=== PATIENT | male | born 1970 | race Caucasian/White ===

== ENCOUNTER → 2023-11-22 11:18 | Outpatient (REF) | payer BC, SELFPAY ==
[2023-11-22 12:23] LABS: INR 2.37; PT 25.8 Sec (11.4-14.6)
== END ==
LOC: REG 11:18
PROVIDERS: ATTENDING PHYSICIAN Internal Medicine; FAMILY PHYSICIAN Internal Medicine
DX: Z95.2 Presence of prosthetic heart valve (principal)
CPT/HCPCS: 36415; 85610

== ENCOUNTER → 2023-12-08 12:08 | Outpatient (REF) | payer BC, SELFPAY ==
[2023-12-08 15:45] LABS: PT 25.1 Sec (11.4-14.6)
== END ==
LOC: HWLAB 12:08
PROVIDERS: ATTENDING PHYSICIAN Internal Medicine; FAMILY PHYSICIAN Internal Medicine
DX: Z95.3 Presence of xenogenic heart valve (principal)
CPT/HCPCS: 36415; 85610

== ENCOUNTER → 2023-12-19 10:44 | Outpatient (REF) | payer BC, SELFPAY ==
[2023-12-19 12:47] LABS: INR 3.14; PT 32.2 Sec (11.4-14.6)
== END ==
LOC: HWLAB 10:44
PROVIDERS: ATTENDING PHYSICIAN Internal Medicine; FAMILY PHYSICIAN Internal Medicine
DX: Z95.3 Presence of xenogenic heart valve (principal)
CPT/HCPCS: 36415; 85610

== ENCOUNTER → 2024-01-01 07:01 | Outpatient (REF) | payer BC, SELFPAY ==
[2024-01-01 09:29] LABS: INR 2.98; PT 31.4 Sec (11.4-14.6)
== END ==
LOC: DHCBC HW 07:01
PROVIDERS: ATTENDING PHYSICIAN Internal Medicine; FAMILY PHYSICIAN Internal Medicine
DX: Z95.2 Presence of prosthetic heart valve (principal); Z95.3 Presence of xenogenic heart valve
CPT/HCPCS: 36415; 85610; 93306

== ENCOUNTER → 2024-01-23 08:05 | Outpatient (REF) | payer BC, SELFPAY ==
[2024-01-23 10:12] LABS: INR 4.16; PT 40.3 Sec (11.4-14.6)
== END ==
LOC: HWLAB 08:05
PROVIDERS: ATTENDING PHYSICIAN Internal Medicine; FAMILY PHYSICIAN Internal Medicine
DX: Z95.3 Presence of xenogenic heart valve (principal)
CPT/HCPCS: 36415; 85610

== ENCOUNTER → 2024-01-31 09:58 | Outpatient (REF) | payer BC, SELFPAY ==
[2024-01-31 11:03] LABS: INR 2.72; PT 28.8 Sec (11.4-14.6)
== END ==
LOC: REG 09:58
PROVIDERS: ATTENDING PHYSICIAN Internal Medicine; FAMILY PHYSICIAN Internal Medicine
DX: Z95.3 Presence of xenogenic heart valve (principal)
CPT/HCPCS: 36415; 85610

== ENCOUNTER → 2024-02-28 10:24 | Outpatient (REF) | payer BC, SELFPAY ==
[2024-02-28 11:15] LABS: INR 2.95; PT 30.6 Sec (11.4-14.6)
== END ==
LOC: REG 10:24
PROVIDERS: ATTENDING PHYSICIAN Internal Medicine
DX: Z95.3 Presence of xenogenic heart valve (principal)
CPT/HCPCS: 36415; 85610

== ENCOUNTER → 2024-03-20 11:24 | Outpatient (REF) | payer BC, SELFPAY ==
[2024-03-20 12:28] LABS: INR 2.32; PT 25.3 Sec (11.4-14.6)
== END ==
LOC: REG 11:24
PROVIDERS: ATTENDING PHYSICIAN Internal Medicine; FAMILY PHYSICIAN Internal Medicine
DX: Z95.3 Presence of xenogenic heart valve (principal)
CPT/HCPCS: 36415; 85610

== ENCOUNTER → 2024-03-26 12:51 | Outpatient (REF) | payer BC, SELFPAY ==
[2024-03-26 14:58] LABS: INR 2.72; PT 28.7 Sec (11.4-14.6)
== END ==
LOC: HWLAB 12:51
PROVIDERS: ATTENDING PHYSICIAN Internal Medicine; FAMILY PHYSICIAN Internal Medicine
DX: Z95.3 Presence of xenogenic heart valve (principal)
CPT/HCPCS: 36415; 85610

== ENCOUNTER → 2024-05-29 08:02 | Outpatient (REF) | payer BC, SELFPAY ==
[2024-05-29 09:49] LABS: % Basophils 0.7 % (0-2); % Eosinophils 1.2 % (0-6); % Immature Granulocytes 0.1 % (0-0.5); % Monocytes 7.3 % (1.7-9.3); % Neutrophils 67.7 % (42.2-75.2); Absolute Basophils 0.1 10^3/uL (0-0.2); Absolute Eosinophils 0.1 10^3/uL (0-0.7); Absolute Lymphocytes 1.6 10^3/uL (1.2-3.4); Absolute Monocytes 0.5 10^3/uL (0.1-0.6); Absolute Neutrophils 4.7 10^3/uL (1.4-6.5); Hemoglobin 13.7 g/dL (13.0-18.0); Mean Corp Hgb Conc. 33.4 g/dL (33.0-37.0); Mean Corpuscular Volume 83.8 fL (80.0-94.0); Mean Platelet Volume 11.5 fL (7.4-10.4); Nucleated Red Blood Cells % 0 % (-); Platelet Count 178 10^3/uL (130-400); Red Blood Cell Count 4.89 10^6/uL (4.70-6.10); Red Cell Dist. Width 13.3 % (11.5-14.5); White Blood Cell Count 6.9 10^3/uL (4.8-10.8)
[2024-05-29 09:52] LABS: INR 3.29; PT 33.4 Sec (11.4-14.6)
[2024-05-29 10:35] LABS: Glycohemoglobin (HgbA1c) 5.3 % (4.0-5.6)
[2024-05-29 10:50] LABS: TSH 3.58 uIU/ml (0.47-4.68)
[2024-05-29 11:26] LABS: ALT (SGPT) 18 U/L (0-50); AST (SGOT) 29 U/L (17-59); Albumin 4.4 g/dl (3.5-5.0); Alkaline Phosphatase 112 U/L (38-126); Blood Urea Nitrogen 15 mg/dl (9-20); Calcium 9.3 mg/dl (8.4-10.2); Carbon Dioxide 23 mmol/L (22-30); Chloride 104 mmol/L (98-107); Glucose 89 mg/dl (70-99); HDL Cholesterol 32 mg/dl; LDL Cholesterol, Calculated 91 mg/dl; Potassium 4.3 mmol/L (3.5-5.1); Sodium 141 mmol/L (135-145); Total Cholesterol 145 mg/dl (50-199); Total Protein 6.6 g/dl (6.3-8.2); Triglyceride 110 mg/dl (10-149); Very Low Density Lipoprotein 22 mg/dl (0-30); eGFR > 60.00
== END ==
LOC: REG 08:02
PROVIDERS: ATTENDING PHYSICIAN Internal Medicine; FAMILY PHYSICIAN Internal Medicine
DX: Z95.3 Presence of xenogenic heart valve (principal); Z95.2 Presence of prosthetic heart valve; I10 Essential (primary) hypertension; E78.2 Mixed hyperlipidemia
CPT/HCPCS: 36415; 80053; 80061; 83036; 84443; 85025; 85610

== ENCOUNTER → 2024-06-26 11:12 | Outpatient (REF) | payer BC, SELFPAY ==
[2024-06-26 12:32] LABS: INR 3.15; PT 32.3 Sec (11.4-14.6)
== END ==
LOC: REG 11:12
PROVIDERS: ATTENDING PHYSICIAN Internal Medicine; FAMILY PHYSICIAN Internal Medicine
DX: Z95.3 Presence of xenogenic heart valve (principal)
CPT/HCPCS: 36415; 85610

== ENCOUNTER → 2024-07-24 09:51 | Outpatient (REF) | payer BC, SELFPAY ==
[2024-07-24 10:37] LABS: INR 2.82; PT 29.6 Sec (11.4-14.6)
== END ==
LOC: REG 09:51
PROVIDERS: ATTENDING PHYSICIAN Internal Medicine
DX: Z95.3 Presence of xenogenic heart valve (principal)
CPT/HCPCS: 36415; 85610

== ENCOUNTER → 2024-09-03 11:41 | Outpatient (REF) | payer BC, SELFPAY ==
[2024-09-03 16:26] LABS: PT 22.8 Sec (11.4-14.6)
== END ==
LOC: HWLAB 11:41
PROVIDERS: ATTENDING PHYSICIAN Internal Medicine; FAMILY PHYSICIAN Internal Medicine
DX: Z95.3 Presence of xenogenic heart valve (principal)
CPT/HCPCS: 36415; 85610

== ENCOUNTER → 2024-09-13 12:20 | Outpatient (REF) | payer BC, SELFPAY ==
[2024-09-13 16:27] LABS: INR 2.35; PT 25.8 Sec (11.4-14.6)
== END ==
LOC: HWLAB 12:20
PROVIDERS: ATTENDING PHYSICIAN Internal Medicine; FAMILY PHYSICIAN Internal Medicine
DX: Z95.3 Presence of xenogenic heart valve (principal)
CPT/HCPCS: 36415; 85610

== ENCOUNTER → 2024-10-16 11:13 | Outpatient (REF) | payer BC, SELFPAY ==
[2024-10-16 12:06] LABS: INR 2.67; PT 28.4 Sec (11.4-14.6)
== END ==
LOC: REG 11:13
PROVIDERS: ATTENDING PHYSICIAN Internal Medicine; FAMILY PHYSICIAN Internal Medicine
DX: Z95.3 Presence of xenogenic heart valve (principal)
CPT/HCPCS: 36415; 85610

== ENCOUNTER → 2024-11-27 10:45 | Outpatient (REF) | payer BC, SELFPAY ==
[2024-11-27 12:38] LABS: INR 3.43; PT 34.4 Sec (11.4-14.6)
== END ==
LOC: REG 10:45
PROVIDERS: ATTENDING PHYSICIAN Internal Medicine
DX: Z95.3 Presence of xenogenic heart valve (principal)
CPT/HCPCS: 36415; 85610

== ENCOUNTER → 2024-12-18 11:02 | Outpatient (REF) | payer BC, SELFPAY ==
[2024-12-18 12:28] LABS: INR 2.49; PT 26.9 Sec (11.4-14.6)
== END ==
LOC: REG 11:02
PROVIDERS: ATTENDING PHYSICIAN Internal Medicine
DX: Z95.3 Presence of xenogenic heart valve (principal)
CPT/HCPCS: 36415; 85610

== ENCOUNTER → 2025-01-07 12:42 | Outpatient (REF) | payer BC, SELFPAY ==
[2025-01-07 15:31] LABS: INR 3.35; PT 33.7 Sec (11.4-14.6)
== END ==
LOC: HWLAB 12:42
PROVIDERS: ATTENDING PHYSICIAN Internal Medicine
DX: Z95.3 Presence of xenogenic heart valve (principal)
CPT/HCPCS: 36415; 85610

== ENCOUNTER → 2025-02-05 10:23 | Outpatient (REF) | payer BC, SELFPAY ==
[2025-02-05 11:24] LABS: INR 3.11; PT 31.9 Sec (11.4-14.6)
== END ==
LOC: REG 10:23
PROVIDERS: ATTENDING PHYSICIAN Internal Medicine
DX: Z95.3 Presence of xenogenic heart valve (principal)
CPT/HCPCS: 36415; 85610

== ENCOUNTER → 2025-02-16 10:32 | Outpatient (REF) | payer BC, SELFPAY ==
[2025-02-16 17:18] LABS: INR 2.58; PT 28.1 Sec (11.4-14.6)
== END ==
LOC: HWLAB 10:32
PROVIDERS: ATTENDING PHYSICIAN Internal Medicine
DX: Z95.3 Presence of xenogenic heart valve (principal)
CPT/HCPCS: 36415; 85610

== ENCOUNTER → 2025-04-16 09:37 | Outpatient (REF) | payer BC, SELFPAY ==
[2025-04-16 11:28] LABS: INR 2.95; PT 31.1 Sec (11.4-14.6)
== END ==
LOC: REG 09:37
PROVIDERS: ATTENDING PHYSICIAN Internal Medicine
DX: Z95.3 Presence of xenogenic heart valve (principal)
CPT/HCPCS: 36415; 85610

== ENCOUNTER → 2025-05-28 11:10 | Outpatient (REF) | payer BC, SELFPAY ==
[2025-05-28 12:06] LABS: INR 2.49; PT 26.9 Sec (11.4-14.6)
== END ==
LOC: REG 11:10
PROVIDERS: ATTENDING PHYSICIAN Internal Medicine; FAMILY PHYSICIAN Internal Medicine
DX: Z95.3 Presence of xenogenic heart valve (principal)
CPT/HCPCS: 36415; 85610

== ENCOUNTER → 2025-07-09 10:01 | Outpatient (REF) | payer BC, SELFPAY ==
[2025-07-09 10:55] LABS: INR 2.41; PT 26.3 Sec (11.4-14.6)
== END ==
LOC: REG 10:01
PROVIDERS: ATTENDING PHYSICIAN Internal Medicine
DX: Z95.3 Presence of xenogenic heart valve (principal)
CPT/HCPCS: 36415; 85610

== ENCOUNTER → 2025-08-13 10:33 | Outpatient (REF) | payer BC, SELFPAY ==
[2025-08-13 12:20] LABS: Hematocrit 40.2 % (39.0-52.0); Hemoglobin 13.5 g/dL (13.0-18.0); Mean Corp Hgb Conc. 33.6 g/dL (33.0-37.0); Mean Corpuscular Volume 83.6 fL (80.0-94.0); Nucleated Red Blood Cells % 0 % (-); Platelet Count 173 10^3/uL (130-400); Red Cell Dist. Width 13.4 % (11.5-14.5)
[2025-08-13 12:32] LABS: INR 2.85; PT 29.9 Sec (11.4-14.6)
[2025-08-13 12:39] LABS: Glycohemoglobin (HgbA1c) 5.4 % (4.0-5.9)
[2025-08-13 13:06] LABS: ALT (SGPT) 21 U/L (0-50); AST (SGOT) 24 U/L (17-59); Albumin 4.3 g/dl (3.5-5.0); Alkaline Phosphatase 102 U/L (38-126); Blood Urea Nitrogen 15 mg/dl (9-20); Calcium 9.2 mg/dl (8.4-10.2); Carbon Dioxide 27 mmol/L (22-30); Chloride 104 mmol/L (98-107); Glucose 76 mg/dl (70-99); HDL Cholesterol 34 mg/dl; LDL Cholesterol, Calculated 109 mg/dl; Potassium 4.1 mmol/L (3.5-5.1); Sodium 136 mmol/L (135-145); Total Protein 7.0 g/dl (6.3-8.2); Very Low Density Lipoprotein 20 mg/dl (0-30); eGFR > 60.00
[2025-08-13 13:37] LABS: TSH 2.09 uIU/ml (0.47-4.68)
== END ==
LOC: REG 10:33
PROVIDERS: ATTENDING PHYSICIAN Internal Medicine
DX: Z95.2 Presence of prosthetic heart valve (principal); E78.2 Mixed hyperlipidemia; E66.9 Obesity, unspecified
CPT/HCPCS: 36415; 80053; 80061; 83036; 84443; 85025; 85610

== ENCOUNTER → 2025-08-19 10:07 | Outpatient (REF) | payer BC, SELFPAY | LOC: HWRCS 10:07 | PROVIDERS: ATTENDING PHYSICIAN Internal Medicine; FAMILY PHYSICIAN Internal Medicine | DX: Z95.2 Presence of prosthetic heart valve (principal); I10 Essential (primary) hypertension | CPT/HCPCS: 93306 ==

== ENCOUNTER → 2025-09-06 15:00 | Outpatient (REF) | payer BC, SELFPAY | LOC: CLAB 15:00 | PROVIDERS: ATTENDING PHYSICIAN Physician Assistant | DX: J34.89 Other specified disorders of nose and nasal sinuses (principal) | CPT/HCPCS: 87070; 87205 ==